=== PATIENT | male | born 2000 | race Caucasian/White ===

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

== ENCOUNTER 2023-10-16 06:31 | Emergency (ER) | payer BC, SELFPAY ==
[2023-10-16 06:33] VITALS: BP 145/89; PULSE 60; RESP 18; TEMP 36.7; O2SAT 100
--- NOTE | 2023-10-16 06:35 | W.ED.GENAD ---
Discharge Plan Disposition Patient Disposition: Home Discharge Details Clinical Impression: Acute torticollis Primary Care Provider: Tone Rubalcava ED Provider: Apolinar Foster Home Meds and New Rx's Prescriptions: New diazepam 5 mg tablet 5 mg PO TID Qty: 5 0RF Discharge Instructions Instructions: Spasmodic Torticollis (ED) Additional Instructions: You were seen in the emergency department for your neck pain. You likely have muscle spasm which is being treated with a muscle relaxer. Please do not operate any machinery or drive or drink alcohol after taking this muscle relaxer. As we discussed if you develop any weakness in one of your limbs if you develop any slurring of your speech or have any other concerns please return to the emergency department. For your pain please take medications as follows: 1. Take acetaminophen (Tylenol), 1,000 mg (two 500 mg tabs) every 6 hours [2. Take ibuprofen (Advil), 400 mg every 6 hours.] Stand Alone Forms: Work Release HPI General Date/Time Provider Initiated Documentation: 10/16/23 06:33. HPI Narrative: MDM This is an overall very well-appearing normothermic and not tachycardic 22-year-old male with history and physical most consistent with acute torticollis. No antipsychotic use to suggest dystonic reaction. No trauma to neck to suggest cervical spinal fracture and no midline cervical spinal tenderness. No history of IV drug use nor recent fevers to suggest vertebral osteomyelitis. No weakness nor IV drug use to suggest transverse myelitis. No visual changes nor history of polymyalgia rheumatica to suggest increased risk for giant cell arteritis. Not anticoagulated nor a hemophiliac to suggest increased risk for spinal epidural abscess. No pain out of proportion to suggest necrotizing soft tissue infection. No recent chiropractic manipulation to suggest increased risk for cervical arterial dissection. Furthermore no bruits. Patient is vaccinated against tetanus and my suspicion is low for acute tetanus. Patient takes no routine medications so my suspicion for drug toxicity secondary to anticholinergic medicines is exceedingly low. No recent animal bites to suggest rabies. No tonic-clonic activity so my suspicion is low for seizures so I do not feel that the patient requires an EEG. Neurologically intact so doubt CVA based on lack of risk factors so I do not feel that the patient requires an MRI nor would he be a tPA candidate. No fevers nor nuchal rigidity to suggest meningitis so I do not feel that the patient requires a lumbar puncture. No history of recent strep infection to suggest send [place] chorea. No recent emesis nor diarrhea so my suspicion for hypocalcemia hypomagnesemia and hypokalemia are exceedingly low so I do not feel that the patient requires assessment of his electrolytes. No recent drug use to suggest PCP toxicity. No history of Parkinson's disease. Not psychotic to suggest psychosis triggered agitation. Given no home medications my suspicion is low for extrapyramidal reaction. No sore throat nor posterior oropharynx erythema to suggest retropharyngeal abscess. 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 No cough and nontoxic-appearing so doubt bacterial tracheitis. No mastoid tenderness to suggest mastoiditis. Patient, his girlfriend and I discussed using ice and/or heat to treat his symptoms in addition to scheduled acetaminophen, ibuprofen, and as needed diazepam. He had no records in the [place] prescription drug monitoring website and so I wrote him for 5 tablets of diazepam each at 5 mg. His girlfriend was going to drive him home and I gave him 1 diazepam tablet in the emergency department. I also provided him with several days off of work. We discussed return to the emergency department for any weakness any slurred speech or any worsening symptoms as the patient does not currently have a primary care provider. I have asked health electrical unit rebuilder Emma to have the patient scheduled for a new primary care provider. Patient understood his return indications and he was discharged with unimpaired trial of expectant outpatient management. Chronic conditions affecting the care of the patient: N/A History obtained from an outside historian: N/A External record review: [facility] [place] Medications: Acetaminophen ibuprofen diazepam Social determinants of health affecting disposition: N/A Management discussed with: N/A Treatment/interventions considered: N/A Response to therapies provided: N/A HPI This is a previously healthy immunized 22-year-old male not on any home medications arriving to the emergency department with his girlfriend in the setting of left-sided neck pain. 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 He notes that for the past several days he has had left-sided neck pain. He bent down this morning to say goodbye to his girlfriend and had sudden worsening neck pain. He felt a tearing sensation in his left neck. Pain was located on the lateral side of his left neck. He has been unable to fully range his neck subsequently. He had a similar episode approximately 5 years ago which was not quite as bad he reports. To resolve that episode, he went to a chiropractor and his symptoms improved. He has had no recent chiropractic manipulation. He denies fevers cough shortness of breath chest pain dysuria frequency. He has not noticed any weakness in his hands difficulty with his vision nor any hearing changes. He denies routine tobacco and illicits but occasionally drinks alcohol. Exam General: Uncomfortable-appearing in no acute distress speaking in complete sentences. Patient's head is rotated to the left. He has a back on the left lateral side of his neck. Head: Normocephalic, atraumatic. Eye: Extraocular eye movements intact. No conjunctival injection. No scleral icterus. Ear, nose, mouth, throat: Grossly normal inspection. Normal voice, handling secretions normally. No mastoid tenderness. Bilateral TMs clear. No significant posterior oropharynx erythema. Uvula midline. Neck: Trachea midline. No midline cervical spinal tenderness. No bruits. Patient has difficult time ranging his neck to the right. Cardiovascular: Well-perfused distal extremities. Regular rate and rhythm. Respiratory: Nonlabored respiration. Clear lungs bilaterally. Gastrointestinal: Nondistended abdomen. Soft nontender. No rebound. No guarding. Musculoskeletal: No edema. Moving all 4 extremities spontaneously. 5 out of 5 bilateral upper and lower extremity strength. Intact sensation motor function in bilateral hands across the radial, median, and ulnar nerve distributions. Skin: Normal for age and race, grossly normal temperature and turgor. No acute rash. Neurologic: Alert and appropriate, no apparent acute deficits. GCS 15. Psychiatric: Mood and manner are appropriate. Grooming and personal hygiene are appropriate. Related Data Home Medications Medication Instructions Recorded Confirmed diazepam 5 mg tablet 5 mg PO TID #5 tabs 10/16/23 Previous Rx's Medication Instructions Recorded diazepam 5 mg tablet 5 mg PO TID #5 tabs 10/16/23 Allergies Allergy/AdvReac Type Severity Reaction Status Date / Time No Known Allergies Allergy Verified 10/16/23 06:37 General KRANTHI: 3 Medical Decision Making Quality:SDOH Health Related Social Needs: No Data to Display PFSH All Active Problems (Updated 10/16/23 @ 06:56 by Apolinar Foster MD) Acute torticollis (Acute) Undescended left testicle (Acute 10/27/13) Attention deficit disorder of childhood with hyperactivity (Acute 04/16/14) School testing spring 2013, 504 plan Normal weight, pediatric, BMI 5th to 84th percentile for age (Acute 12/30/14) Routine child health exam (Acute 10/27/13) Medical History (Updated 10/16/23 @ 06:56 by Apolinar Foster MD) Swine flu ADHD (attention deficit hyperactivity disorder) Undescended testes Vision problem wears glasses Surgical History Repair, Undescended Testicle Circumcision Family History Mother Healthy adult on routine physical examination Father Gluten intolerance Grandmother Neoplasm Social History Smoking/Tobacco Use Status: Never Smoking risk assessment performed?: Yes Alcohol Intake: never Drug use: Never Substance use type: does not use Do you feel safe at home: Yes Do you feel safe in your relationship?: Yes
[2023-10-16] MEDS: diazePAM 5 MG TAB PO (07:06)
[2023-10-16] MEDS: Ibuprofen 600 MG TAB PO (07:07)
[2023-10-16] MEDS: Acetaminophen 500 MG TAB 1000 MG PO (07:07)
--- NOTE | 2023-10-16 08:35 | NUR.NOTE ---
Referral given to Care Managers to help patient establish a Primary Care Provider as soon as available.
== END 2023-10-16 07:30 | disposition home or self-care (01) ==
LOC: ER 07:40
PROVIDERS: Emergency Provider Emergency Medicine; PCP Nurse Practitioner Pediatrics
DX: M43.6 Torticollis (principal)
CPT/HCPCS: 99283

== ENCOUNTER 2024-10-01 16:07 | Outpatient (CLI) | payer BC, SELFPAY ==
[2024-10-01 16:06] LABS: ALT 20 U/L (16-63); Triglyceride 76 mg/dL (<150)
== END 2024-10-01 16:08 | disposition home or self-care (01) ==
PROVIDERS: PCP Nurse Practitioner Pediatrics; Visit Provider Dermatology
DX: Z79.899 Other long term (current) drug therapy (principal)
CPT/HCPCS: 36415; 84460; 84478